=== PATIENT | female | born 1990 | race African-American/Black ===

== ENCOUNTER 2018-02-09 08:22 | Emergency (ER) | payer OTHER ==
[2018-02-09] MEDS ORDERED: METOCLOPRAMIDE 10 MG/2mL INJ ONE (09:24)
[2018-02-09] MEDS ORDERED: KETOROLAC 30 MG/ML INJ ONE (09:25)
[2018-02-09] MEDS ORDERED: DIPHENHYDRAMINE 50 MG/ML VIAL ONE (09:25)
[2018-02-09] MEDS ORDERED: NA CHLORIDE 0.9% 500 ML ONE (09:25)
[2018-02-09 09:36] LABS: Absolute Lymphocytes (CBC) 2.2 K/uL (0.7-4.9); Absolute Monocytes 1.1 K/uL (0.1-1.3); Absolute Neutrophil 6.2 K/uL (1.8-8.0); Basophils % 0.5 % (0-1.3); Eosinophils % 2.3 % (0-4.4); Hematocrit 40.7 % (36.0-45.0); Lymphocytes % 22.7 % (15.3-44.8); MCH 27.2 pg (27.0-35.0); MCV 81.6 fL (80-100); MPV 7.7 fL (7.6-11.3); Monocytes % 11.2 % (3.3-12.3); RBC Red Blood Cell Count 4.99 M/uL (3.86-4.86)
--- NOTE | 2018-02-09 09:43 | ER ---
Nurse's Notes [facility] Name: Sarai Medina Age: 27 yrs Sex: Female : 1990 Arrival Date: 02/09/2018 Time: 08:26 Bed 16 Private MD: Diagnosis: Presentation: 02/09 08:35 Presenting complaint: Patient states: pt c/o vomiting/diarrhea since eating [employer] iw yesterday. Transition of care: patient was not received from another setting of care. Onset of symptoms was February 09, 2018. Care prior to arrival: None. 08:35 Method Of Arrival: Ambulatory iw 08:35 Acuity: LAURA 3 iw Historical: - Allergies: 08:45 Phenergan; tw2 - Home Meds: 08:45 None [Active]; tw2 - PSHx: 08:45 left hand sx; Knee surgery; tw2 - Immunization history:: Adult Immunizations up to date. - Social history:: Smoking status: Patient uses tobacco products, smokes one-half pack cigarettes per day. Screenin:39 Abuse screen: Denies threats or abuse. Nutritional screening: On. Tuberculosis tw2 screening: No symptoms or risk factors identified. Fall Risk None identified. Assessment: 08:42 General: Appears in no apparent distress. obese, Behavior is calm, cooperative, tw2 appropriate for age. Pain: Complains of pain in "headache". Neuro: Level of Consciousness is awake, alert, obeys commands, Oriented to person, place, time, situation. Cardiovascular: Denies chest pain, shortness of breath, Heart tones S1 S2 Capillary refill < 3 seconds Patient's skin is warm and dry. Respiratory: Airway is patent Respiratory effort is even, unlabored, Respiratory pattern is regular, symmetrical. GI: Abdomen is round non-distended, obese, Bowel sounds present X 4 quads. Reports vomiting, 7 x's vomiting since 11 am yesterday. : No signs and/or symptoms were reported regarding the genitourinary system. EENT: No signs and/or symptoms were reported regarding the EENT system. Derm: Skin is intact, is healthy with good turgor, Skin temperature is warm. Musculoskeletal: Range of motion: intact in all extremities. 09:31 Reassessment: pt pulled iv out, stated "i am tired and im ready to go", pts at tw2 bedside. Vital Signs: 08:41 BP 103 / 86; Pulse 86; Resp 17; Temp 98.9(O); Pulse Ox 99% on R/A; tw2 ED Course: 08:26 Patient arrived in ED. mr 08:38 Jean Claude Zheng PA is PHCP. jr8 08:38 Gerardo Morel MD is Attending Physician. jr8 08:38 Carmen Sheth, ENMANUEL is Primary Nurse. tw2 08:45 Arm band placed on. tw2 08:46 Triage completed. iw 08:46 Bed in low position. Call light in reach. Pulse ox on. NIBP on. tw2 Administered Medications: 09:20 Drug: Reglan 10 mg Route: IVP; Site: right antecubital; tw2 09:22 Drug: TORadol 30 mg Route: IVP; Site: right antecubital; tw2 09:24 Drug: Benadryl 25 mg Route: IVP; Site: right antecubital; tw2 09:24 Drug: NS 0.9% 500 ml Route: IV; Rate: bolus; Site: right antecubital; tw2 Outcome: 09:42 Patient left the ED. tw2 09:44 Patient left the ED. tw2 09:49 Patient left the ED. 8 Signatures: Shannon Barber Caridad Frias, RN RN Jean Claude Zheng PA PA jr8 Carmen Sheth RN RN tw2 Corrections: (The following items were deleted from the chart) 08:46 08:35 Acuity: LAURA 4 iw iw
--- NOTE | 2018-02-09 09:43 | EDPHYS ---
Physician Documentation [facility] Name: Sarai Medina Age: 27 yrs Sex: Female : 1990 Arrival Date: 02/09/2018 Time: 08:26 Bed 16 Private MD: ED Physician Gerardo Morel HPI: 02/09 08:54 This 27 yrs old Black Female presents to ER via Ambulatory with complaints of Vomiting, jr8 Headache. 08:54 The patient presents to the emergency department with nausea, vomiting, diarrhea. jr8 Onset: The symptoms/episode began/occurred acutely, yesterday. Possible causes: bad food exposure, hamburger. The symptoms are aggravated by nothing. The symptoms are alleviated by nothing. Associated signs and symptoms: Pertinent positives: headache. Severity of symptoms: At their worst the symptoms were mild in the emergency department the symptoms are unchanged. The patient has not experienced similar symptoms in the past. The patient has not recently seen a physician. Patient stated that she had a hamburger at 10 AM yesterday. At 11 AM started to vomit. Has continued to vomit this morning and now has headache from vomiting that she cannot get rid of . Historical: - Allergies: 08:45 Phenergan; tw2 - Home Meds: 08:45 None [Active]; tw2 - PSHx: 08:45 left hand sx; Knee surgery; tw2 - Immunization history:: Adult Immunizations up to date. - Social history:: Smoking status: Patient uses tobacco products, smokes one-half pack cigarettes per day. ROS: 08:54 Eyes: Negative for injury, pain, redness, and discharge, ENT: Negative for injury, jr8 pain, and discharge, Neck: Negative for injury, pain, and swelling, Cardiovascular: Negative for chest pain, palpitations, and edema, Respiratory: Negative for shortness of breath, cough, wheezing, and pleuritic chest pain, Back: Negative for injury and pain, MS/Extremity: Negative for injury and deformity, Skin: Negative for injury, rash, and discoloration. 08:54 Abdomen/GI: Positive for nausea, vomiting, and diarrhea, Negative for abdominal pain, abdominal distension, anorexia, dysphagia, hematemesis, black/tarry stool, rectal pain, rectal bleeding, bowel incontinence, flatulence. 08:54 Neuro: Positive for headache, Negative for altered mental status, dizziness, gait disturbance, hearing loss, loss of consciousness, numbness, seizure activity, speech changes, syncope, near syncope, tingling, tinnitus, tremor, visual changes, weakness. Exam: 08:54 Eyes: Pupils equal round and reactive to light, extra-ocular motions intact. Lids and jr8 lashes normal. Conjunctiva and sclera are non-icteric and not injected. Cornea within normal limits. Periorbital areas with no swelling, redness, or edema. ENT: Nares patent. No nasal discharge, no septal abnormalities noted. Tympanic membranes are normal and external auditory canals are clear. Oropharynx with no redness, swelling, or masses, exudates, or evidence of obstruction, uvula midline. Mucous membranes moist. Neck: Trachea midline, no thyromegaly or masses palpated, and no cervical lymphadenopathy. Supple, full range of motion without nuchal rigidity, or vertebral point tenderness. No Meningismus. Cardiovascular: Regular rate and rhythm with a normal S1 and S2. No gallops, murmurs, or rubs. Normal PMI, no JVD. No pulse deficits. Respiratory: Lungs have equal breath sounds bilaterally, clear to auscultation and percussion. No rales, rhonchi or wheezes noted. No increased work of breathing, no retractions or nasal flaring. Abdomen/GI: Soft, non-tender, with normal bowel sounds. No distension or tympany. No guarding or rebound. No evidence of tenderness throughout. Back: No spinal tenderness. No costovertebral tenderness. Full range of motion. Skin: Warm, dry with normal turgor. Normal color with no rashes, no lesions, and no evidence of cellulitis. MS/ Extremity: Pulses equal, no cyanosis. Neurovascular intact. Full, normal range of motion. Neuro: Awake and alert, GCS 15, oriented to person, place, time, and situation. Cranial nerves II-XII grossly intact. Motor strength 5/5 in all extremities. Sensory grossly intact. Cerebellar exam normal. Normal gait. Vital Signs: 08:41 BP 103 / 86; Pulse 86; Resp 17; Temp 98.9(O); Pulse Ox 99% on R/A; tw2 MDM: 08:38 Patient medically screened. jr8 09:46 Data reviewed: vital signs, nurses notes, lab test result(s). ED course: Patient was jr8 yelling at significant other while in Exam room. Had told the nurse that she was getting hot and ripped her IV out and left the ED. Could not get to her before she left . 02/09 08:54 Order name: CBC with Diff jr 02/09 08:54 Order name: Basic Metabolic Panel [facility] 02/09 09:41 Order name: CBC with Automated Diff; Complete Time: 09:42 [facility] 02/09 08:54 Order name: Urine Test (obtain specimen) [facility] 02/09 08:54 Order name: Urine Dipstick-Ancillary (obtain specimen) [facility] 02/09 08:54 Order name: IV jr Administered Medications: 09:20 Drug: Reglan 10 mg Route: IVP; Site: right antecubital; tw2 09:22 Drug: TORadol 30 mg Route: IVP; Site: right antecubital; tw2 09:24 Drug: Benadryl 25 mg Route: IVP; Site: right antecubital; tw2 09:24 Drug: NS 0.9% 500 ml Route: IV; Rate: bolus; Site: right antecubital; tw2 Disposition: 11:00 Co-signature as Attending Physician, Gerardo Morel MD I agree with the assessment and erica plan of care. Disposition: 02/09/18 09:42 Patient left the facility after being seen by provider. - Patient left due to (see nurse's notes). Signatures: Dispatcher [employer] [facility] Gerardo Morel MD MD cha Roszak, Josh, PA PA 8 Carmen Sheth RN RN tw2
[2018-02-09 09:45] LABS: BUN Blood Urea Nitrogen 10 mg/dL (6-20); Bicarbonate 28 mEq/L (21-31); Glomerular Filtration Rate > 90 mL/min (=/>90); Glucose Level 102 mg/dL (65-120); Potassium 3.8 mEq/L (3.6-5.0); Sodium Level 138 mEq/L (135-145)
== END 2018-02-09 09:49 | disposition left against medical advice (07) ==
LOC: ER 08:22
DX: R11.2 Nausea with vomiting, unspecified (principal); R51 Headache; F17.210 Nicotine dependence, cigarettes, uncomplicated; Z88.8 Allergy status to other drugs, medicaments and biological substances
CPT/HCPCS: 36415; 80048; 85025; 96374; 96375; 99283; J2765

== ENCOUNTER 2018-07-31 16:45 | Emergency (ER) | payer OTHER ==
[2018-07-31] MEDS ORDERED: CLINDAMYCIN 900MG/D5W 900 MG/50 ML BAG IV ONE (17:30)
[2018-07-31] MEDS ORDERED: KETOROLAC 30 MG/ML INJ ONE (17:35)
[2018-07-31 18:17] LABS: Absolute Lymphocytes (CBC) 2.3 K/uL (0.7-4.9); Absolute Monocytes 1.5 K/uL (0.1-1.3); BUN Blood Urea Nitrogen 7 mg/dL (7-18); Basophils % 0.3 % (0-1.3); Bicarbonate 27 mmol/L (21-32); Eosinophils % 1.4 % (0-4.4); Glucose Level 91 mg/dL (74-106); Hematocrit 38.2 % (36.0-45.0); Lymphocytes % 17.6 % (15.3-44.8); MCH 27.2 pg (27.0-35.0); MCV 82.2 fL (80-100); MPV 8.3 fL (7.6-11.3); Monocytes % 11.5 % (3.3-12.3); Potassium 3.7 mmol/L (3.5-5.1); RBC Red Blood Cell Count 4.65 M/uL (3.86-4.86); Sodium Level 140 mmol/L (136-145)
[2018-07-31 18:20] LABS: Urine Blood 2+ (NEG); Urine Glucose NEGATIVE (NEG); Urine Protein NEGATIVE (NEG); Urine Specific Gravity 1.015 (1.005-1.030)
--- NOTE | 2018-07-31 19:36 | RAD REPORT ---
EXAM DESCRIPTION: CT - Facial Bones W Con Mpr - 07/31/2018 6:45 pm CLINICAL HISTORY: Right-sided maxilla region facial swelling COMPARISON: None. TECHNIQUE: Axial 2 millimeter thick images of the facial soft tissues obtained following nonionic co ntrast administration. FINDINGS: Frontal, ethmoid, sphenoid and left maxillary sinuses are fully aerated. Prominent circumf erential mucosal thickening fills the majority of the right maxillary sinus. No air-fluid level. Wall s are slightly sclerotic indicating chronic sinusitis. No globe or orbital content abnormality. No fracture changes. Condyles of the mandible are normally positioned. Dental decay is seen in the po sterior right maxilla molar. There is edema and stranding in the adjacent fatty tissues. No abscess o r drainable fluid collections seen. IMPRESSION: Edematous/inflammatory stranding in the soft tissues along the right side maxilla. No ab scess or drainable fluid collection. Posterior right maxilla dental decay is present. No bone erosion or destruction. Chronic right maxillary sinusitis.
[2018-07-31] MEDS ORDERED: DEXAMETHASONE 4 MG/ML VIAL ONE (20:29)
--- NOTE | 2018-07-31 20:44 | EDPHYS ---
Physician Documentation [facility] Name: Sarai Medina Age: 28 yrs Sex: Female : 1990 Arrival Date: 07/31/2018 Time: 16:47 Bed 25 Private MD: None, None ED Physician Gregory Hickman HPI: 07/31 20:45 This 28 yrs old Black Female presents to ER via Ambulatory with complaints of Headache, wa Ear Pain, Jaw Pain. 20:45 The patient presents with pain, swelling. The problem is located in the right zygomatic wa area and upper jaw area. Onset: The symptoms/episode began/occurred 2 day(s) ago. Duration: The symptoms are continuous, and are steadily getting worse. Modifying factors: The symptoms are alleviated by nothing, the symptoms are aggravated by chewing, talking. Associated signs and symptoms: The patient has no apparent associated signs or symptoms. Severity of symptoms: At their worst the symptoms were moderate, in the emergency department the symptoms are actually worse, moderately. The patient has not experienced similar symptoms in the past. The patient has not recently seen a physician. 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 - Social history:: Smoking status: Patient uses tobacco products, smokes one-half pack cigarettes per day. - Ebola Screening: : Patient negative for fever greater than or equal to 101.5 degrees Fahrenheit, and additional compatible Ebola Virus Disease symptoms Patient denies exposure to infectious person Patient denies travel to an Ebola-affected area in the 21 days before illness onset No symptoms or risks identified at this time. - Family history:: not pertinent. - Hospitalizations: : No recent hospitalization is reported. ROS: 20:46 Constitutional: Negative for fever, chills, and weight loss, Eyes: Negative for injury, wa pain, redness, and discharge, Neck: Negative for injury, pain, and swelling, Cardiovascular: Negative for chest pain, palpitations, and edema, Respiratory: Negative for shortness of breath, cough, wheezing, and pleuritic chest pain, Abdomen/GI: Negative for abdominal pain, nausea, vomiting, diarrhea, and constipation, Back: Negative for injury and pain, : Negative for injury, bleeding, discharge, and swelling, MS/Extremity: Negative for injury and deformity, Skin: Negative for injury, rash, and discoloration, Psych: Negative for depression, anxiety, suicide ideation, homicidal ideation, and hallucinations. 20:46 ENT: Positive for dental pain, ear pain, of the R upper jaw, sinus pain, Negative for drainage from ear(s). 20:46 Neuro: Positive for headache. 20:46 All other systems are negative. Exam: 20:49 Constitutional: This is a well developed, well nourished patient who is awake, alert, wa and in no acute distress. Eyes: Pupils equal round and reactive to light, extra-ocular motions intact. Lids and lashes normal. Conjunctiva and sclera are non-icteric and not injected. Cornea within normal limits. Periorbital areas with no swelling, redness, or edema. Neck: Trachea midline, no thyromegaly or masses palpated, and no cervical lymphadenopathy. Supple, full range of motion without nuchal rigidity, or vertebral point tenderness. No Meningismus. Chest/axilla: Normal chest wall appearance and motion. Nontender with no deformity. No lesions are appreciated. Cardiovascular: Regular rate and rhythm with a normal S1 and S2. No gallops, murmurs, or rubs. Normal PMI, no JVD. No pulse deficits. Respiratory: Lungs have equal breath sounds bilaterally, clear to auscultation and percussion. No rales, rhonchi or wheezes noted. No increased work of breathing, no retractions or nasal flaring. Abdomen/GI: Soft, non-tender, with normal bowel sounds. No distension or tympany. No guarding or rebound. No evidence of tenderness throughout. Back: No spinal tenderness. No costovertebral tenderness. Full range of motion. Skin: Warm, dry with normal turgor. Normal color with no rashes, no lesions, and no evidence of cellulitis. MS/ Extremity: Pulses equal, no cyanosis. Neurovascular intact. Full, normal range of motion. Neuro: Awake and alert, GCS 15, oriented to person, place, time, and situation. Cranial nerves II-XII grossly intact. Motor strength 5/5 in all extremities. Sensory grossly intact. Cerebellar exam normal. Normal gait. Psych: Awake, alert, with orientation to person, place and time. Behavior, mood, and affect are within normal limits. 20:49 Head/face: Sinus tenderness, that is moderate, is located over the right maxillary sinus. 20:49 ENT: External ear(s): are unremarkable, Dental exam: dental caries, diffusely, multiple dental decay. no specific area of abscess. Vital Signs: 17:03 BP 143 / 79; Pulse 97; Resp 18; Temp 98.7; Pulse Ox 98% on R/A; Weight 136.08 kg; aj Height 5 ft. 6 in. (167.64 cm); 18:38 BP 110 / 71 RA Supine (auto/lg); Pulse 68; Resp 20; Pulse Ox 98% on R/A; Pain 7/10; jp3 20:53 BP 134 / 74; Pulse 76; Resp 16; Temp 98.5(TE); Pulse Ox 100% on R/A; la1 17:03 Body Mass Index 48.42 (136.08 kg, 167.64 cm) aj MDM: 20:43 Patient medically screened. wa 20:50 Differential diagnosis: dental caries, gingivitis, dental abscess. Data reviewed: vital wa signs, nurses notes. Test interpretation: by ED physician or midlevel provider: leukocytosis. CT noted for edema/inflammatory stranding in soft tissue of R side maxilla. no obvious abscess. Response to treatment: the patient's symptoms have markedly improved after treatment. ED course: d/c with abx and close f/u. advised immediate return for acute worsening. 07/31 17:15 Order name: CBC with Diff; Complete Time: 18:30 kdr 07/31 17:15 Order name: Chem 7; Complete Time: 18:30 kdr 07/31 17:15 Order name: CT Facial Bones W/ Con \T\ Mpr; Complete Time: 20:21 kdr 07/31 17:38 Order name: Urine Dipstick--Ancillary (enter results); Complete Time: 18:30 eb 07/31 17:38 Order name: Urine --Ancillary (enter results); Complete Time: 18:30 eb Administered Medications: 17:27 Drug: Clindamycin 900 mg Route: IVPB; Infused Over: 30 mins; Site: left wrist; mg2 20:52 Follow up: IV Status: Completed infusion la1 17:33 Drug: TORadol 30 mg Route: IVP; Site: left forearm; la1 20:36 Follow up: Response: No adverse reaction; Pain is decreased la1 20:35 Drug: Decadron - Dexamethasone 10 mg Route: IVP; Site: left forearm; la1 20:36 Follow up: Response: No adverse reaction la1 Disposition: 07/31/18 20:43 Discharged to Home. Impression: Maxillary Sinusitis, Dental Caries. - Condition is Stable. - Discharge Instructions: Dental Caries, Adult, Sinusitis, Adult. - Prescriptions for Augmentin 875- 125 mg Oral Tablet - take 1 tablet by ORAL route every 12 hours for 10 days; 20 tablet. Ibuprofen 600 mg Oral Tablet - take 1 tablet by ORAL route every 6 hours As needed take with food; 30 tablet. - Medication Reconciliation Form, Thank You Letter, Antibiotic Education, Prescription Opioid Use form. - Follow up: Tiki Coley MD; When: 2 - 3 days; Reason: follow up wih the ENT doctor if worsening. you have sinus inflammation. Follow up: Aramis Julien DDS; When: 1 - 2 days; Reason: Recheck today's complaints. - Problem is new. - Symptoms have improved. - Notes: follow up with the dentist as discussed. return here immediately if your symptoms are worsening Signatures: Dispatcher [employer] [facility] Pam Abebe RN RN aj Rittger, Kevin, MD MD kdr Attema, Lee, RN RN la1 Gregory Hickman MD MD wa Gardose, Michele, RN RN mg2 Corrections: (The following items were deleted from the chart) 18:19 17:16 TEST, SERUM+[id number].LAB.BRZ ordered. [facility] 20:54 20:43 07/31/2018 20:43 Discharged to Home. Impression: Maxillary Sinusitis; Dental la1 Caries. Condition is Stable. Forms are Medication Reconciliation Form, Thank You Letter, Antibiotic Education, Prescription Opioid Use. Follow up: Tiki Coley; When: 2 - 3 days; Reason: follow up wih the ENT doctor if worsening. you have sinus inflammation. Follow up: Aramis Julien; When: 1 - 2 days; Reason: Recheck today's complaints. Problem is new. Symptoms have improved. kim
--- NOTE | 2018-07-31 20:44 | ER ---
Nurse's Notes [facility] Name: Sarai Medina Age: 28 yrs Sex: Female : 1990 Arrival Date: 07/31/2018 Time: 16:47 Bed 25 Private MD: None, None Diagnosis: Maxillary Sinusitis;Dental Caries Presentation: 07/31 17:02 Presenting complaint: Patient states: Swelling to right upper jaw/cheek for 2 days. aj Pain at 10/10. Transition of care: patient was not received from another setting of care. Onset of symptoms was July 31, 2018. Risk Assessment: Do you want to hurt yourself or someone else? Patient reports no desire to harm self or others. Initial Sepsis Screen: Does the patient meet any 2 criteria? No. Patient's initial sepsis screen is negative. Does the patient have a suspected source of infection? No. Patient's initial sepsis screen is negative. Care prior to arrival: None. 17:02 Method Of Arrival: Ambulatory aj 17:02 Acuity: LAURA 3 aj Triage Assessment: 17:03 Headache History: The patient has had previous headaches. General: Appears in no aj apparent distress. comfortable, Behavior is calm, cooperative, appropriate for age. Pain: Complains of pain in right zygomatic area. EENT: Reports pain in right zygomatic area. Neuro: Level of Consciousness is awake, alert, obeys commands, Oriented to person, place, time, situation, Appropriate for age. Respiratory: Airway is patent Respiratory effort is even, unlabored, Respiratory pattern is regular, symmetrical. Derm: Skin is intact, is healthy with good turgor, Skin is pink, warm \T\ dry. normal. 20:53 Pain: Pain currently is 5 out of 10 on a pain scale. Pain began 2-3 days ago. Also la1 complains of no other associated symptoms. 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 - Social history:: Smoking status: Patient uses tobacco products, smokes one-half pack cigarettes per day. - Ebola Screening: : Patient negative for fever greater than or equal to 101.5 degrees Fahrenheit, and additional compatible Ebola Virus Disease symptoms Patient denies exposure to infectious person Patient denies travel to an Ebola-affected area in the 21 days before illness onset No symptoms or risks identified at this time. - Family history:: not pertinent. - Hospitalizations: : No recent hospitalization is reported. Screenin:00 Abuse screen: Denies threats or abuse. Nutritional screening: No deficits noted. la1 Tuberculosis screening: No symptoms or risk factors identified. Fall Risk None identified. Assessment: 19:59 General: Appears in no apparent distress. Behavior is calm, cooperative. Pain: la1 Complains of pain in right zygomatic area. Neuro: Level of Consciousness is awake, alert, obeys commands, Oriented to person, place, time, situation. Cardiovascular: Capillary refill < 3 seconds Patient's skin is warm and dry. Respiratory: Airway is patent Respiratory effort is even, unlabored, Respiratory pattern is regular, symmetrical, Breath sounds are clear bilaterally. GI: No deficits noted. No signs and/or symptoms were reported involving the gastrointestinal system. : No deficits noted. No signs and/or symptoms were reported regarding the genitourinary system. EENT: Denies blurred vision photophobia difficulty swallowing. 20:53 Reassessment: Patient appears in no apparent distress at this time. No changes from la1 previously documented assessment. Patient and/or family updated on plan of care and expected duration. Pain level reassessed. Vital Signs: 17:03 BP 143 / 79; Pulse 97; Resp 18; Temp 98.7; Pulse Ox 98% on R/A; Weight 136.08 kg; aj Height 5 ft. 6 in. (167.64 cm); 18:38 BP 110 / 71 RA Supine (auto/lg); Pulse 68; Resp 20; Pulse Ox 98% on R/A; Pain 7/10; jp3 20:53 BP 134 / 74; Pulse 76; Resp 16; Temp 98.5(TE); Pulse Ox 100% on R/A; la1 17:03 Body Mass Index 48.42 (136.08 kg, 167.64 cm) aj ED Course: 16:47 Patient arrived in ED. sb2 16:47 None, None is Private Physician. sb2 17:03 Triage completed. aj 17:03 Arm band placed on right wrist. Patient placed in waiting room. aj 17:06 Kevin Abrams RN is Primary Nurse. la1 17:07 Vivek Hernandez MD is Attending Physician. [facility] 17:30 Radiology exam delayed due to lab results not completed at this time. (BUN/Creatinine). vr 18:[address] via wheelchair. vr 18:46 CT Facial Bones W/ Con \T\ Mpr In Process Unspecified. EDMS 19:10 Attending Physician role handed off by Vivek Hernandez MD ut 19:10 Gregory Hickman MD is Attending Physician. ut 20:00 Call light in reach. Side rails up X 1. la1 20:00 No provider procedures requiring assistance completed. Inserted saline lock: 22 gauge la1 in left forearm, using aseptic technique. Blood collected. 20:41 Tiki Coley MD is Referral Physician. ut 20:42 Aramis Julien DDS is Referral Physician. wa 20:53 IV discontinued, intact, bleeding controlled, No redness/swelling at site. Pressure la1 dressing applied. Administered Medications: 17:27 Drug: Clindamycin 900 mg Route: IVPB; Infused Over: 30 mins; Site: left wrist; mg2 20:52 Follow up: IV Status: Completed infusion la1 17:33 Drug: TORadol 30 mg Route: IVP; Site: left forearm; la1 20:36 Follow up: Response: No adverse reaction; Pain is decreased la1 20:35 Drug: Decadron - Dexamethasone 10 mg Route: IVP; Site: left forearm; la1 20:36 Follow up: Response: No adverse reaction la1 Outcome: 20:43 Discharge ordered by . ut 20:53 Discharged to home ambulatory. la1 20:53 Condition: stable 20:53 Discharge instructions given to patient, Instructed on discharge instructions, follow up and referral plans. medication usage, Demonstrated understanding of instructions, follow-up care, medications. 20:54 Patient left the ED. la1 Signatures: Dispatcher [employer] Pam Somers RN RN aj Rittger, Kevin, MD MD kdr Davis, Victoria vr Kevin Abrams RN RN la1 Gregory Hickman MD MD ut Luiza Lam Michele, RN RN [facility] Lamont Engle jp3
== END 2018-07-31 20:54 | disposition home or self-care (01) ==
LOC: ER 16:45
DX: K02.9 Dental caries, unspecified (principal); J32.0 Chronic maxillary sinusitis; F17.210 Nicotine dependence, cigarettes, uncomplicated
CPT/HCPCS: 36415; 70487; 76377; 80048; 81003; 81025; 85025; 96365; 96366; 96375; 99284; Q9967

== ENCOUNTER 2021-02-19 23:55 | Emergency (ER) | payer OTHER, SELFPAY ==
--- NOTE | 2021-02-20 01:12 | ER ---
Nurse's Notes [facility] Name: Sarai Medina Age: 30 yrs Sex: Female : 1990 Arrival Date: 02/19/2021 Time: 23:58 Bed External Waiting Private MD: Diagnosis: ED Course: 02/19 23:58 Patient arrived in ED. ag3 Administered Medications: No medications were administered Outcome: 02/20 01:11 Patient left the ED. sg Signatures: Luke Majano RN RN Diane Joaquin ag3
== END 2021-02-20 01:11 | disposition left against medical advice (07) ==
LOC: ER 23:55
DX: Z02.9 Encounter for administrative examinations, unspecified (principal)

== ENCOUNTER 2021-02-22 01:59 | Emergency (ER) | payer SELFPAY ==
[2021-02-22] MEDS ORDERED: MEPERIDINE HCL 25 MG/ML SYR ONE (02:33)
[2021-02-22] MEDS ORDERED: dexAMETHasone 10 MG/ML VIAL ONE (02:33)
[2021-02-22] MEDS ORDERED: NA CHLORIDE 0.9% 500 ML ONE (02:33)
--- NOTE | 2021-02-22 03:02 | ER ---
Nurse's Notes [facility] Name: Sarai Medina Age: 30 yrs Sex: Female : 1990 Arrival Date: 02/22/2021 Time: 02:02 Bed 15 Private MD: Diagnosis: Migraine Presentation: 02/22 02:08 Chief complaint: Patient states: i have migraine since last and i am on mg2 penicillin for tooth infection. Coronavirus screen: Client denies travel out of the [place] in the last 14 days. Ebola Screen: No symptoms or risks identified at this time. Initial Sepsis Screen: Does the patient meet any 2 criteria? No. Patient's initial sepsis screen is negative. Does the patient have a suspected source of infection? No. Patient's initial sepsis screen is negative. Risk Assessment: Do you want to hurt yourself or someone else? Patient reports no desire to harm self or others. Onset of symptoms was January 2021. 02:08 Method Of Arrival: Ambulatory mg2 02:08 Acuity: LAURA 4 mg2 Triage Assessment: 02:10 Headache History: The patient has had previous headaches. General: Appears in no mg2 apparent distress. comfortable, Behavior is calm, cooperative. Pain:. Historical: - Allergies: 02:09 Phenergan; mg2 - Home Meds: 02:09 None [Active]; mg2 - PMHx: 02:09 None; mg2 - PSHx: 02:09 None; mg2 - Immunization history:: Flu vaccine status is unknown. - Social history:: Smoking status: unknown. - Family history:: not pertinent. - Hospitalizations: : No recent hospitalization is reported. Screenin:38 Abuse screen: Denies threats or abuse. Nutritional screening: No deficits noted. fu Tuberculosis screening: No symptoms or risk factors identified. Fall Risk None identified. Assessment: 02:33 General: Appears uncomfortable, Behavior is calm, cooperative, appropriate for age. fu Pain: Complains of pain in left side of the face, headache Pain currently is 10 out of 10 on a pain scale. Quality of pain is described as aching. Neuro: Level of Consciousness is awake, alert, obeys commands, Oriented to person, place, time, situation, Concrete Layer are equal bilaterally Moves all extremities. Gait is steady, Speech is normal, Facial symmetry appears normal. Cardiovascular: Denies chest pain, nausea, vomiting. Respiratory: Respiratory effort is even, unlabored, Respiratory pattern is regular. GI: No signs and/or symptoms were reported involving the gastrointestinal system. : No signs and/or symptoms were reported regarding the genitourinary system. Derm: No signs and/or symptoms reported regarding the dermatologic system. Musculoskeletal: No signs and/or symptoms reported regarding the musculoskeletal system. 03:31 Reassessment: patient asleep in bed, not in respiratory distress. fu Vital Signs: 02:08 BP 142 / 100; Pulse 89; Resp 18; Pulse Ox 100% on R/A; mg2 02:19 Temp 97.4(TE); mg2 03:33 BP 127 / 41; Pulse 78; Resp 16; Pulse Ox 100% on R/A; Pain 0/10; fu [place] Coma Score: 02:59 Eye Response: spontaneous(4). Verbal Response: oriented(5). Motor Response: obeys rn commands(6). Total: 15. ED Course: 02:02 Patient arrived in ED. cl3 02:04 Too Dubon, ENMANUEL is Primary Nurse. fu 02:05 Kavon Payton MD is Attending Physician. rn 02:09 Triage completed. mg2 02:10 Arm band placed on. mg2 02:44 CT Head Brain wo Cont In Process Unspecified. EDMS 02:50 Inserted saline lock: 22 gauge in right hand, using aseptic technique. fu 03:39 Bed in low position. Call light in reach. Pulse ox on. NIBP on. fu 03:39 No provider procedures requiring assistance completed. fu 03:51 IV discontinued, bleeding controlled, Pressure dressing applied. fu Administered Medications: 02:31 Drug: Demerol 25 mg Route: IVP; Site: right hand; fu 03:29 Follow up: Response: Pain is decreased fu 02:31 Drug: NS 0.9% 500 ml Route: IV; Rate: bolus; Site: right hand; fu 03:30 Follow up: Response: No adverse reaction; IV Intake: 500ml fu 03:30 Follow up: IV Status: Completed infusion fu 02:32 Drug: Decadron - Dexamethasone 10 mg Route: IVP; Site: right hand; fu 03:31 Follow up: Response: No adverse reaction fu Intake: 03:30 IV: 500ml; Total: 500ml. fu Outcome: 03:01 Discharge ordered by . rn 03:52 Discharged to home ambulatory. fu 03:52 Condition: stable 03:52 Discharge instructions given to patient, Instructed on discharge instructions, follow up and referral plans. Demonstrated understanding of instructions, follow-up care. 03:52 Patient left the ED. fu Signatures: Dispatcher [employer] EDKavon Hutton MD MD rn Umadhay, Felix, Mikey Guy RN, RN RN mg2 Lewis, Charde 3
--- NOTE | 2021-02-22 03:02 | EDPHYS ---
Physician Documentation [facility] Name: Sarai Medina Age: 30 yrs Sex: Female : 1990 Arrival Date: 02/22/2021 Time: 02:02 Bed 15 Private MD: ED Physician Kavon Payton HPI: 02/22 02:12 This 30 yrs old Black Female presents to ER via Ambulatory with complaints of Jaw Pain, rn Headache. 02:12 The patient complains of pain to the back of head, left side of head. The patient rn describes the headache as aching. 02:12 Onset: The symptoms/episode began/occurred 5 day(s) ago. Associated signs and symptoms: rn Pertinent negatives: fever, neck stiffness, rash, vision changes, vision loss. Severity of symptoms: At its worst the pain was moderate, in the emergency department the pain is unchanged. The symptoms are alleviated by nothing. the symptoms are aggravated by nothing. The patient has experienced similar episodes in the past. The patient has not recently seen a physician. Reports headache, migraine, began 5 days ago, no fever, + hx of migraines but worse than usual. No trauma. Reports dental problems but on abx currently and denies focal dental pain.. Historical: - Allergies: 02:09 Phenergan; mg2 - Home Meds: 02:09 None [Active]; mg2 - PMHx: 02:09 None; mg2 - PSHx: 02:09 None; mg2 - Immunization history:: Flu vaccine status is unknown. - Social history:: Smoking status: unknown. - Family history:: not pertinent. - Hospitalizations: : No recent hospitalization is reported. ROS: 02:12 Constitutional: Negative for fever, chills, and weight loss, Eyes: Negative for injury, rn pain, redness, and discharge, Neck: Negative for injury, pain, and swelling, Cardiovascular: Negative for chest pain, palpitations, and edema, Respiratory: Negative for shortness of breath, cough, wheezing, and pleuritic chest pain, Abdomen/GI: Negative for abdominal pain, nausea, vomiting, diarrhea, and constipation, Back: Negative for injury and pain, MS/Extremity: Negative for injury and deformity, Skin: Negative for injury, rash, and discoloration, Neuro: Negative for weakness, numbness, tingling, and seizure. Exam: 02:12 Constitutional: This is a well developed, well nourished patient who is awake, alert rn Head/Face: Normocephalic, atraumatic. Eyes: Pupils equal round and reactive to light, extra-ocular motions intact. ENT: Poor dentition, no swelling, no erythema Neck: Trachea midline, no thyromegaly or masses palpated, and no cervical lymphadenopathy. Supple, full range of motion without nuchal rigidity, or vertebral point tenderness. No Meningismus. Skin: Warm, dry with normal turgor. Normal color with no rashes, no lesions, and no evidence of cellulitis. MS/ Extremity: Pulses equal, no cyanosis. Neurovascular intact. Full, normal range of motion. Equal circumference. Neuro: Awake and alert, GCS 15, oriented to person, place, time, and situation. Cranial nerves II-XII grossly intact. Motor strength 5/5 in all extremities. Sensory grossly intact. Cerebellar exam normal. Normal gait. Vital Signs: 02:08 BP 142 / 100; Pulse 89; Resp 18; Pulse Ox 100% on R/A; mg2 02:19 Temp 97.4(TE); mg2 03:33 BP 127 / 41; Pulse 78; Resp 16; Pulse Ox 100% on R/A; Pain 0/10; fu [place] Coma Score: 02:59 Eye Response: spontaneous(4). Verbal Response: oriented(5). Motor Response: obeys rn commands(6). Total: 15. MDM: 02:06 Patient medically screened. rn 02:59 Differential diagnosis: hypertensive headache, migraine, tension headache, vasomotor rn headache. Data reviewed: vital signs, nurses notes, radiologic studies, CT scan, and as a result, I will discharge patient. Counseling: I had a detailed discussion with the patient and/or guardian regarding: the historical points, exam findings, and any diagnostic results supporting the discharge/admit diagnosis, radiology results, the need for outpatient follow up, to return to the emergency department if symptoms worsen or persist or if there are any questions or concerns that arise at home. Response to treatment: the patient's symptoms have mildly improved after treatment, and as a result, I will discharge patient. Special discussion: I discussed with the patient/guardian in detail that at this point there is no indication for admission to the hospital. It is understood, however, that if the symptoms persist or worsen the patient needs to return immediately for re-evaluation. ED course: Neg ct head, already on abx for teeth, recommend neuro f/u if migraines continue.. 02/22 02:12 Order name: CT Head Brain wo Cont rn 02/22 02:12 Order name: IV Start; Complete Time: : rn Administered Medications: 02: Drug: Demerol 25 mg Route: IVP; Site: right hand; fu 03:29 Follow up: Response: Pain is decreased fu : Drug: NS 0.9% 500 ml Route: IV; Rate: bolus; Site: right hand; fu 03:30 Follow up: Response: No adverse reaction; IV Intake: 500ml fu 03:30 Follow up: IV Status: Completed infusion fu :32 Drug: Decadron - Dexamethasone 10 mg Route: IVP; Site: right hand; fu 03:31 Follow up: Response: No adverse reaction fu Disposition: 02/22/21 03:01 Discharged to Home. Impression: Migraine. - Condition is Stable. - Discharge Instructions: Migraine Headache. - Medication Reconciliation Form, Thank You Letter, Antibiotic Education, Prescription Opioid Use form. - Follow up: Private Physician; When: As needed; Reason: Recheck today's complaints, Re-evaluation by your physician. - Problem is new. - Symptoms have improved. Signatures: Dispatcher [employer] EDMS Kavon Payton MD MD rn Umadhay, Felix, RN RN fu Gardose, Michele, RN RN mg2 Corrections: (The following items were deleted from the chart) 03:52 03:01 02/22/2021 03:01 Discharged to Home. Impression: Migraine. Condition is Stable. fu Forms are Medication Reconciliation Form, Thank You Letter, Antibiotic Education, Prescription Opioid Use. Follow up: Private Physician; When: As needed; Reason: Recheck today's complaints, Re-evaluation by your physician. Problem is new. Symptoms have improved. rn
--- NOTE | 2021-02-22 13:20 | RAD REPORT ---
EXAM DESCRIPTION: CT - Head Brain Wo Cont - 02/22/2021 6:01 am COMPARISON: None. CLINICAL HISTORY: [facility] MAIN HEADACHE TECHNIQUE: Axial images were obtained from skull base to vertex without intravenous contrast. Imag es viewed on bone and brain windows. Multiplanar reformats were performed. Automated exposure contr ol was utilized on this examination as a dose lowering technique. FINDINGS: Brain parenchyma, ventricles, dura, meninges, and extra-axial spaces: Ventricles and sulci are normal. No abnormal attenuation of brain parenchyma is present. No acute intracranial hemor rhage or abnormal extra-axial fluid collections are present. Vascular structures: No hyperdense arteries or veins. Calvarium, mastoid air cells, paranasal sinuses and orbits: The calvarium is normal. The mastoid air cells are clear. Visualized paranasal sinuses are unremarkable. Orbital structures are unremarkable. IMPRESSION: No acute intracranial abnormality. Electronically signed by: Filiberto Jackson MD 02/22/2021 2:51 AM CDT Due to temporary technical issues with the PACS/Fluency reporting system, reports are being signed by the in house radiologists without review as a courtesy to insure prompt reporting. The interpreting radiologist is fully responsible for the content of the report.
[2021-02-22 15:47] VITALS: O2SAT 100
[2021-02-22 15:48] VITALS: TEMP 97.4
[2021-02-22 15:49] VITALS: BP 127/41
== END 2021-02-22 03:52 | disposition home or self-care (01) ==
LOC: ER 01:59
DX: G43.909 Migraine, unspecified, not intractable, without status migrainosus (principal); Z88.8 Allergy status to other drugs, medicaments and biological substances
CPT/HCPCS: 70450; 96361; 96374; 96375; 99284; J1100; J2175; J7040

== ENCOUNTER 2021-10-16 09:16 | Emergency (ER) | payer SELFPAY ==
[2021-10-16 10:07] LABS: Urine Blood Negative (Negative); Urine Glucose Negative (Negative); Urine Protein Negative (Negative); Urine Specific Gravity 1.025 (1.005-1.030)
[2021-10-16] MEDS ORDERED: NA CHLORIDE 0.9% 1,000 ML ONE (10:19)
[2021-10-16] MEDS ORDERED: MORPHINE 4 MG/ML SYR ONE (10:19)
[2021-10-16] MEDS ORDERED: ONDANSETRON 4 MG/2 ML VIAL ONE (10:19)
[2021-10-16 10:27] LABS: Absolute Lymphocytes (CBC) 0.7 K/uL (0.7-4.9); Basophils % 0.3 % (0-1.3); Hematocrit 40.1 % (36.0-45.0); Lymphocytes % 5.5 % (15.3-44.8); RBC Red Blood Cell Count 5.11 M/uL (3.86-4.86)
[2021-10-16 10:34] LABS: Urine Specific Gravity/Preg 1.025 (1.005-1.030)
--- NOTE | 2021-10-16 11:04 | RAD REPORT ---
EXAM DESCRIPTION: CT - Abdomen Pelvis W Contrast - 10/16/2021 10:42 am CLINICAL HISTORY: Abdominal pain COMPARISON: none. TECHNIQUE: Computed axial tomography of the abdomen pelvis was obtained. 100 cc Isovue-300 was admin istered intravenously. Oral contrast was not requested which limits evaluation of bowel. All CT scans are performed using dose optimization technique as appropriate and may include automated exposure control or mA/KV adjustment according to patient size. FINDINGS: Cholecystectomy. Small umbilical hernia. Fluid within small bowel. The liver, spleen, pancreas, adrenal and kidneys appear unremarkable. There is no evidence of diverticulitis. Normal appendix. Trace amount of ascites IMPRESSION: Fluid within nondilated bowel may indicate an enteritis
[2021-10-16 11:19] LABS: SARS-COV-2 RT PCR NEGATIVE (NEGATIVE)
[2021-10-16 11:22] LABS: ALT/SGPT 19 U/L (12-78); AST/SGOT 11 U/L (15-37); Albumin 3.4 g/dL (3.4-5.0); Alkaline Phosphatase 93 U/L (45-117); BUN Blood Urea Nitrogen 9 mg/dL (7-18); Bicarbonate 24 mmol/L (21-32); Bilirubin Direct < 0.1 mg/dL (0-0.2); Bilirubin Total 0.3 mg/dL (0.2-1.0); Glucose Level 108 mg/dL (74-106); Lipase 49 U/L (73-393); Protein, Total 7.7 g/dL (6.4-8.2); Sodium Level 141 mmol/L (136-145)
--- NOTE | 2021-10-16 11:32 | ER ---
Nurse's Notes [facility] Name: Sarai Medina Age: 31 yrs Sex: Female : 1990 Arrival Date: 10/16/2021 Time: 09:18 Bed 9 Private MD: Diagnosis: Vomiting, unspecified;Diarrhea, unspecified Presentation: 10/16 09:42 Chief complaint: Patient states: nausea/vomiting/diarrhea and abd pain that began 2 aa5 days ago. Coronavirus screen: diarrhea, nausea, vomiting. Ebola Screen: No symptoms or risks identified at this time. Initial Sepsis Screen: Does the patient meet any 2 criteria? HR > 90 bpm. Does the patient have a suspected source of infection? No. Patient's initial sepsis screen is negative. Risk Assessment: Do you want to hurt yourself or someone else? Patient reports no desire to harm self or others. Onset of symptoms was September 2021. 09:42 Acuity: LAURA 3 aa5 09:42 Method Of Arrival: Ambulatory aa5 Historical: - Allergies: 09:43 Phenergan; aa5 - Home Meds: 09:43 None [Active]; aa5 - PMHx: 09:43 None; aa5 - PSHx: 09:43 Cholecystectomy; aa5 - Immunization history:: Client reports having NOT received the Covid vaccine. - Social history:: Smoking status: Patient reports the use of cigarette tobacco products. Screenin:17 Abuse screen: Denies threats or abuse. Denies injuries from another. Nutritional ss screening: No deficits noted. Tuberculosis screening: Never had TB. Fall Risk None identified. Assessment: 10:00 General: Appears in no apparent distress. comfortable, Behavior is calm, cooperative, ss laughing and joking with ED staff. Reports feeling ill for 1-2 days, Denies fever. Pain: Complains of pain in epigastric area and left lower quadrant Pain currently is 7 out of 10 on a pain scale. Quality of pain is described as aching, tender, Pain began 2-3 days ago. Is continuous. Neuro: Level of Consciousness is awake, alert, obeys commands. Cardiovascular: Capillary refill < 3 seconds is brisk in bilateral fingers. Respiratory: Airway is patent Respiratory effort is even, unlabored, Respiratory pattern is regular, symmetrical. GI: Abdomen is non-distended. GI: Reports lower abdominal pain, upper abdominal pain, diarrhea, nausea, vomiting. : No signs and/or symptoms were reported regarding the genitourinary system. Denies burning with urination, urgency. EENT: Oral mucosa is moist. Derm: Skin is pink, warm \T\ dry. normal. Musculoskeletal: Circulation, motion, and sensation intact. Range of motion: intact in all extremities, Swelling absent. 10:36 Reassessment: Pt to CT now VIA wheelchair. ss 11:36 Reassessment: Patient appears in no apparent distress at this time. Patient and/or ss family updated on plan of care and expected duration. Pain level reassessed. Patient is alert, oriented x 3, equal unlabored respirations, skin warm/dry/pink. 11:37 Reassessment: Awaiting for Infusion to complete prior to discharge. ss Vital Signs: 09:42 BP 120 / 81; Pulse 108; Resp 18 S; Temp 98.0(TE); Pulse Ox 99% on R/A; Weight 124.74 kg aa5 (R); Height 5 ft. 6 in. (167.64 cm) (R); 11:29 Pulse 89; Pulse Ox 100% on R/A; iw 09:42 Body Mass Index 44.39 (124.74 kg, 167.64 cm) aa5 ED Course: 09:18 Patient arrived in ED. as 09:42 Osmany Molina NP is PHCP. pm1 09:42 Vivek Hernandez MD is Attending Physician. pm1 09:42 Arm band placed on. aa5 09:43 Triage completed. aa5 10:16 Estefania Jules, ENMANUEL is Primary Nurse. ss 10:17 Patient has correct armband on for positive identification. Bed in low position. Call ss light in reach. Pulse ox on. NIBP on. Warm blanket given. 10:17 Inserted saline lock: 22 gauge in right antecubital area, using aseptic technique. ss Blood collected. 10:17 Patient maintains SpO2 saturation greater than 95% on room air. ss 10:42 CT Abd/Pelvis - IV Contrast Only In Process Unspecified. EDMS 11:37 No provider procedures requiring assistance completed. ss 12:23 IV discontinued, intact, bleeding controlled, No redness/swelling at site. ld1 Administered Medications: 10:30 Drug: Zofran (Ondansetron) 4 mg Route: IVP; Site: right antecubital; ss 10:30 Drug: NS 0.9% 1000 ml Route: IV; Rate: 1000 ml; Site: right antecubital; ss 10:32 Drug: morphine 4 mg Route: IVP; Site: right antecubital; ss Outcome: 11:31 Discharge ordered by MD. pm1 12:23 Discharged to home ambulatory. ld1 12:23 Condition: stable 12:23 Discharge instructions given to patient, Instructed on discharge instructions, follow up and referral plans. medication usage, Demonstrated understanding of instructions, follow-up care, medications, Prescriptions given X 2. 12:23 Patient left the ED. ld1 Signatures: Dispatcher [employer] EDMS Mally Meier Irene, RN RN iw Calderon, Audri, RN RN aa5 Estefania Jules RN RN ss Marinas, Patrick, MARIKA [employer] pm1 Elizabeth Perez RN RN ld1
--- NOTE | 2021-10-16 11:33 | EDPHYS ---
Physician Documentation [facility] Name: Sarai Medina Age: 31 yrs Sex: Female : 1990 Arrival Date: 10/16/2021 Time: 09:18 Bed 9 Private MD: ED Physician Vivek Hernandez HPI: 10/16 09:47 This 31 yrs old Black Female presents to ER via Ambulatory with complaints of pm1 Vomiting/Diarrhea. 09:47 The patient presents to the emergency department with vomiting, diarrhea, abdominal pm1 pain. Onset: The symptoms/episode began/occurred 2 day(s) ago. Possible causes: unknown. The symptoms are aggravated by food , The symptoms are alleviated by nothing. Associated signs and symptoms: Pertinent negatives: fever. Severity of symptoms: in the emergency department the symptoms are unchanged. The patient has not recently seen a physician. Historical: - Allergies: 09:43 Phenergan; aa5 - Home Meds: 09:43 None [Active]; aa5 - PMHx: 09:43 None; aa5 - PSHx: 09:43 Cholecystectomy; aa5 - Immunization history:: Client reports having NOT received the Covid vaccine. - Social history:: Smoking status: Patient reports the use of cigarette tobacco products. ROS: 09:47 Constitutional: Negative for fever, chills, and weight loss, Cardiovascular: Negative pm1 for chest pain, palpitations, and edema, Respiratory: Negative for shortness of breath, cough, wheezing, and pleuritic chest pain. 09:47 Back: Negative for injury and pain, : Negative for injury, bleeding, discharge, and swelling, MS/Extremity: Negative for injury and deformity, Skin: Negative for injury, rash, and discoloration, Neuro: Negative for headache, weakness, numbness, tingling, and seizure. 09:47 Abdomen/GI: Positive for abdominal pain, nausea, vomiting, and diarrhea, Negative for constipation. 09:47 All other systems are negative. Exam: 09:47 Constitutional: This is a well developed, well nourished patient who is awake, alert, pm1 and in no acute distress. Head/Face: Normocephalic, atraumatic. 09:47 Skin: Warm, dry with normal turgor. Normal color with no rashes, no lesions, and no evidence of cellulitis. MS/ Extremity: Pulses equal, no cyanosis. Neurovascular intact. Full, normal range of motion. 09:47 Cardiovascular: Exam negative for acute changes, Rate: tachycardic, Rhythm: regular, Pulses: no pulse deficits are appreciated. 09:47 Respiratory: Exam negative for acute changes, the patient does not display signs of respiratory distress, Respirations: normal, Breath sounds: are clear throughout. 09:47 Abdomen/GI: Exam negative for acute changes, Inspection: abdomen appears normal, Palpation: abdomen is soft and non-tender, in all quadrants. 09:47 Neuro: Exam negative for acute changes, Orientation: is normal, Mentation: is normal, Motor: is normal, moves all fours. Vital Signs: 09:42 BP 120 / 81; Pulse 108; Resp 18 S; Temp 98.0(TE); Pulse Ox 99% on R/A; Weight 124.74 kg aa5 (R); Height 5 ft. 6 in. (167.64 cm) (R); 11:29 Pulse 89; Pulse Ox 100% on R/A; iw 09:42 Body Mass Index 44.39 (124.74 kg, 167.64 cm) aa5 MDM: 09:46 Patient medically screened. pm1 10:32 Differential diagnosis: Nonspecific abd pain, cholecystitis, appendicitis, pm1 diverticulitis, viral gastroenteritis, gastroenteritis. 11:31 Data reviewed: vital signs. Data interpreted: Pulse oximetry: on room air is 100 %. pm1 Interpretation: normal. Counseling: I had a detailed discussion with the patient and/or guardian regarding: the historical points, exam findings, and any diagnostic results supporting the discharge/admit diagnosis, lab results, radiology results, the need for outpatient follow up, to return to the emergency department if symptoms worsen or persist or if there are any questions or concerns that arise at home. 10/16 09:45 Order name: Basic Metabolic Panel; Complete Time: : aa5 10/16 09:45 Order name: CBC with Diff aa10/16 09:45 Order name: Hepatic Function; Complete Time: : aa5 10/16 09:45 Order name: Lipase; Complete Time: aa10/16 09:57 Order name: COVID-19/FLU A+B (Document "Date of Onset" if Symptomatic); Complete Time: pm1 11:20 10/16 10:07 Order name: Urine Dipstick-Ancillary; Complete Time: 10:50 EDMS 10/16 09:45 Order name: IV Saline Lock; Complete Time: 10:17 aa5 10/16 09:45 Order name: Labs collected and sent; Complete Time: 10:17 aa5 10/16 09:53 Order name: CT Abd/Pelvis - IV Contrast Only; Complete Time: 11:20 pm1 10/16 09:53 Order name: Urine Dipstick-Ancillary (obtain specimen); Complete Time: 10:06 pm1 10/16 10:07 Order name: Urine --Ancillary (enter results); Complete Time: 10:50 iw 10/16 09:53 Order name: Urine Test (obtain specimen); Complete Time: 10:06 pm1 Administered Medications: 10:30 Drug: Zofran (Ondansetron) 4 mg Route: IVP; Site: right antecubital; ss 10:30 Drug: NS 0.9% 1000 ml Route: IV; Rate: 1000 ml; Site: right antecubital; ss 10:32 Drug: morphine 4 mg Route: IVP; Site: right antecubital; ss Disposition: 14:54 Co-signature as Attending Physician, Vivek Hernandez MD I agree with the assessment and kdr plan of care. Disposition Summary: 10/16/21 11:31 Discharge Ordered Location: Home pm1 Problem: new pm1 Symptoms: have improved pm1 Condition: Stable pm1 Diagnosis - Vomiting, unspecified pm1 - Diarrhea, unspecified pm1 Followup: pm1 - With: Emergency Department - When: As needed - Reason: Worsening of condition Followup: pm1 - With: Private Physician - When: 2 - 3 days - Reason: Recheck today's complaints, Continuance of care, Re-evaluation by your physician Discharge Instructions: - Discharge Summary Sheet pm1 - Food Choices to Help Relieve Diarrhea, Adult pm1 - Diarrhea, Adult pm1 - Nausea and Vomiting, Adult pm1 - Viral Gastroenteritis, Adult pm1 Forms: - Medication Reconciliation Form pm1 - Thank You Letter pm1 - Antibiotic Education pm1 - Prescription Opioid Use pm1 Prescriptions: - ondansetron 4 mg Oral tablet,disintegrating - place 1 tablet by TRANSLINGUAL route every 8 hours As needed; 12 tablet; pm1 Refills: 0, Product Selection Permitted - dicyclomine 20 mg Oral Tablet - take 1 tablet by ORAL route every 6 hours As needed; 20 tablet; Refills: 0, pm1 Product Selection Permitted Signatures: Dispatcher [employer] Vivek Bowser MD MD kdr Calderon, Audri, RN RN aa5 Estefania Jules RN RN ss Osmany Molina, [employer] pm1
[2021-10-16 12:34] LABS: Anisocytosis SLIGHT; Blood Morphology Comment NOTED (NOT SEEN); Hypochromasia 1+; Platelet Estimate ADEQ; White Blood Cell Scan OK (OK)
[2021-10-16 12:37] VITALS: BP 120/81; TEMP 98
[2021-10-16 12:39] VITALS: O2SAT 100
== END 2021-10-16 12:23 | disposition home or self-care (01) ==
LOC: ER 09:16
DX: R19.7 Diarrhea, unspecified (principal); Z20.822 Contact with and (suspected) exposure to COVID-19; Z72.0 Tobacco use; Z88.8 Allergy status to other drugs, medicaments and biological substances
CPT/HCPCS: 0240U; 36415; 74177; 80048; 80076; 81003; 81025; 82565; 83690; 85025; 96374; 96375; 99284; J2405; J7030; Q9967

== ENCOUNTER 2022-02-27 09:35 | Emergency (ER) | payer SELFPAY ==
[2022-02-27] MEDS ORDERED: NA CHLORIDE 0.9% 1,000 ML ONE (10:03)
[2022-02-27 10:36] LABS: Absolute Lymphocytes (CBC) 1.8 K/uL (0.7-4.9); Hematocrit 37.8 % (36.0-45.0); Lymphocytes % 14.2 % (15.3-44.8); MPV 7.6 fL (7.6-11.3); RBC Red Blood Cell Count 4.92 M/uL (3.86-4.86)
[2022-02-27 11:09] LABS: ALT/SGPT 20 U/L (12-78); AST/SGOT 8 U/L (15-37); Albumin 3.5 g/dL (3.4-5.0); Alkaline Phosphatase 86 U/L (45-117); BUN Blood Urea Nitrogen 3 mg/dL (7-18); Bicarbonate 22 mmol/L (21-32); Bilirubin Total 0.2 mg/dL (0.2-1.0); Glucose Level 92 mg/dL (74-106); HCG, Quantitative 49474 mIU/mL (1-3); Lipase 58 U/L (73-393); Potassium 3.6 mmol/L (3.5-5.1); Protein, Total 7.9 g/dL (6.4-8.2); Sodium Level 137 mmol/L (136-145)
[2022-02-27 11:46] LABS: Urine Blood Negative (Negative); Urine Glucose Negative (Negative); Urine Protein Trace (Negative)
--- NOTE | 2022-02-27 11:50 | RAD REPORT ---
EXAM DESCRIPTION: US - Transvaginal OB - 02/27/2022 11:38 am CLINICAL HISTORY: ABD CRAMPING, COMPARISON: No comparisons FINDINGS: Single IUP identified. heart tones are present. The crown-rump length measures 3 cm which is consistent with 9 weeks 4 days. The yolk sac measures 5 millimeters. heart rate is zuri sured at 171 beats per minute. The right ovary measures 3.6 x 1.7 x 1.2 cm with volume of 3.8 cc. The left ovary measures 3.1 x 2.6 x 1.8 cm with volume of 7.6 cc. Bilateral ovarian blood flow is present. IMPRESSION: Single viable IUP with positive heart tones measuring 9 weeks 4 days with SHANTEL of 1 11/28/2021. Bilateral ovarian blood flow.
[2022-02-27 12:02] LABS: Urine Bacteria 20-50 /HPF (<20); Urine Mucus MOD /HPF (NONE SEEN); Urine RBC <5 /HPF (NONE SEEN)
--- NOTE | 2022-02-27 12:09 | ER ---
Nurse's Notes [facility] Name: Sarai Medina Age: 31 yrs Sex: Female : 1990 Arrival Date: 02/27/2022 Time: 09:36 Bed 15 Private MD: Diagnosis: UTI/ Urinary tract infection, site not specified;9 weeks gestation of Presentation: 02/27 09:39 Chief complaint: Patient states: "I have not been able to urinate in 2 days. I have jd3 been throwing up and still can't go. I am currently as well, but I don't know how far.". Coronavirus screen: At this time, the client does not indicate any symptoms associated with coronavirus-19. Ebola Screen: No symptoms or risks identified at this time. Initial Sepsis Screen: Does the patient meet any 2 criteria? No. Patient's initial sepsis screen is negative. Does the patient have a suspected source of infection? No. Patient's initial sepsis screen is negative. Risk Assessment: Do you want to hurt yourself or someone else? Patient reports no desire to harm self or others. Onset of symptoms was February 24, 2022. 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 Flu vaccine is not up to date. - Social history:: Smoking status: Patient/guardian denies using tobacco, Stopped _ months ago 1. Screenin:15 Abuse screen: Denies threats or abuse. Nutritional screening: No deficits noted. vg1 Tuberculosis screening: No symptoms or risk factors identified. Fall Risk No fall in past 12 months (0 pts). No secondary diagnosis (0 pts). IV access (20 points). Ambulatory Aid- None/Bed Rest/Nurse Assist (0 pts). Gait- Normal/Bed Rest/Wheelchair (0 pts) Mental Status- Oriented to own ability (0 pts). Total Armstrong Fall Scale indicates No Risk (0-24 pts). Assessment: 09:53 General: Appears in no apparent distress. uncomfortable, Behavior is cooperative, vg1 crying. Pain: Complains of pain in back and pelvis Pain currently is 8 out of 10 on a pain scale. Pain began Friday02/24/22 Noted to be crying, guarding. Neuro: Level of Consciousness is awake, alert, obeys commands, Oriented to person, place, time, situation. Cardiovascular: Patient's skin is warm and dry. Respiratory: Airway Respiratory effort is even, unlabored. GI: Abdomen is round non-distended, Reports constipation, nausea, vomiting, since x 1 week Last BM was 02/24/22. : Reports inability to void, since 02/24/22 'Im but unsure of how long; my last period was in November but my periods are irregular'. EENT: No signs and/or symptoms were reported regarding the EENT system. Derm: Skin is intact, is healthy with good turgor. Musculoskeletal: Circulation, motion, and sensation intact. 11:48 Reassessment: Patient appears in no apparent distress at this time. No changes from vg1 previously documented assessment. Patient and/or family updated on plan of care and expected duration. Pain level reassessed. Patient is alert, oriented x 3, equal unlabored respirations, skin warm/dry/pink. Vital Signs: 09:42 BP 131 / 75; Pulse 109; Resp 20 S; Temp 98.8(TE); Pulse Ox 100% on R/A; Weight 90.72 kg jd3 (R); Height 5 ft. 6 in. (167.64 cm) (R); Pain 8/10; 09:55 BP 102 / 52; Pulse 100; Resp 17; Pulse Ox 100% on R/A; vg1 10:15 BP 113 / 74; Pulse 98; Resp 16; Pulse Ox 100% on R/A; vg1 11:00 BP 121 / 72; Pulse 84; Resp 16; Pulse Ox 100% on R/A; vg1 09:42 Body Mass Index 32.28 (90.72 kg, 167.64 cm) jd3 ED Course: 09:36 Patient arrived in ED. am2 09:37 Heather Loera FNP-C is PHCP. kb 09:37 Vivek Hernandez MD is Attending Physician. kb 09:41 Triage completed. jd3 09:43 Arm band placed on. jd3 09:53 Marina Lorenzana, RN is Primary Nurse. vg1 10:15 Patient has correct armband on for positive identification. Placed in gown. Bed in low vg1 position. Call light in reach. Side rails up X 1. 10:19 Initial lab(s) drawn, by me, sent to lab. Inserted saline lock: 20 gauge in right vg1 antecubital area, using aseptic technique. Blood collected. 11:40 US Transvaginal Ob In Process Unspecified. EDMS 12:18 No provider procedures requiring assistance completed. IV discontinued, intact, vg1 bleeding controlled, No redness/swelling at site. Pressure dressing applied. Administered Medications: 10:21 Drug: NS 0.9% 1000 ml Route: IV; Rate: 1 bolus; Site: right antecubital; vg1 12:17 Follow up: IV Status: Completed infusion; IV Intake: 1000ml vg1 Intake: 12:17 IV: 1000ml; Total: 1000ml. vg1 Outcome: 12:08 Discharge ordered by . kb 12:18 Discharged to home ambulatory. vg1 12:18 Condition: good 12:18 Discharge instructions given to patient, Instructed on discharge instructions, follow up and referral plans. medication usage, Demonstrated understanding of instructions, follow-up care, medications, Prescriptions given X 2. 12:18 Patient left the ED. vg1 Signatures: Dispatcher [employer] EDDE Heather Loera, SHERMAN PRISON TEACHER-Pam Elizabeth am2 Chas Chavez RN RN Marina Rehman, RN RN vg1 Corrections: (The following items were deleted from the chart) 09:43 09:42 Pulse 109bpm; Resp 20bpm; Spontaneous; Pulse Ox 100% RA; Temp 98.8F Temporal; jd3 90.72 kg Reported; Height 5 ft. 6 in. Reported; BMI: 32.2; Pain 8/10; jd3 10:37 09:53 GI: Abdomen is round non-distended, Reports nausea, vomiting, since x 1 week vg1 vg1
--- NOTE | 2022-02-27 12:09 | EDPHYS ---
Physician Documentation [facility] Name: Sarai Medina Age: 31 yrs Sex: Female : 1990 Arrival Date: 02/27/2022 Time: 09:36 Bed 15 Private MD: ED Physician Vivek Hernandez HPI: 02/27 09:45 This 31 yrs old Black Female presents to ER via Ambulatory with complaints of kb Nausea/Vomiting, Constipation, Urinary Retention. 09:45 The patient presents to the emergency department with nausea, vomiting. kb 09:52 Onset: The symptoms/episode began/occurred 1 week(s) ago. Possible causes: . kb The symptoms are aggravated by nothing. The symptoms are alleviated by nothing. Associated signs and symptoms: Pertinent positives: nausea, vomiting, decreased urination. Severity of symptoms: At their worst the symptoms were moderate in the emergency department the symptoms are unchanged. The patient has not experienced similar symptoms in the past. The patient has not recently seen a physician. Pt reports nausea and vomiting for a week. States she has not urinated since Friday after confucianist. Unable to tolerate anything by mouth. 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 Flu vaccine is not up to date. - Social history:: Smoking status: Patient/guardian denies using tobacco, Stopped _ months ago 1. ROS: 09:45 Constitutional: Negative for fever, chills, and weight loss. kb 09:45 Abdomen/GI: Positive for abdominal pain, nausea and vomiting. 09:45 : Positive for difficulty urinating. 09:45 All other systems are negative. Exam: 09:45 Constitutional: This is a well developed, well nourished patient who is awake, alert, kb and in no acute distress. Head/Face: Normocephalic, atraumatic. ENT: Moist Mucous membranes Cardiovascular: Regular rate and rhythm with a normal S1 and S2. No gallops, murmurs, or rubs. No pulse deficits. Respiratory: Respirations even and unlabored. No increased work of breathing. Talking in full sentences Abdomen/GI: Soft, non-tender. No distention Skin: Warm, dry with normal turgor. Normal color. MS/ Extremity: Pulses equal, no cyanosis. Neurovascular intact. Full, normal range of motion. Neuro: Awake and alert, GCS 15, oriented to person, place, time, and situation. Moves all extremities. Normal gait. Psych: Awake, alert, with orientation to person, place and time. Behavior, mood, and affect are within normal limits. Vital Signs: 09:42 BP 131 / 75; Pulse 109; Resp 20 S; Temp 98.8(TE); Pulse Ox 100% on R/A; Weight 90.72 kg jd3 (R); Height 5 ft. 6 in. (167.64 cm) (R); Pain 8/10; 09:55 BP 102 / 52; Pulse 100; Resp 17; Pulse Ox 100% on R/A; vg1 10:15 BP 113 / 74; Pulse 98; Resp 16; Pulse Ox 100% on R/A; vg1 11:00 BP 121 / 72; Pulse 84; Resp 16; Pulse Ox 100% on R/A; vg1 09:42 Body Mass Index 32.28 (90.72 kg, 167.64 cm) jd3 MDM: 09:42 Patient medically screened. kb 09:44 Data reviewed: vital signs, nurses notes. Data interpreted: Pulse oximetry: on room air kb is 100 %. Interpretation: normal. 12:07 Counseling: I had a detailed discussion with the patient and/or guardian regarding: the kb historical points, exam findings, and any diagnostic results supporting the discharge/admit diagnosis, lab results, radiology results, the need for outpatient follow up, an OB/Gyne specialist, to return to the emergency department if symptoms worsen or persist or if there are any questions or concerns that arise at home. 02/27 09:42 Order name: CBC with Diff; Complete Time: 10:42 kb 02/27 09:42 Order name: CMP; Complete Time: 11:12 kb 02/27 09:42 Order name: Lipase; Complete Time: 11:12 kb 02/27 09:42 Order name: Quantitative Hcg; Complete Time: 11:12 kb 02/27 11:47 Order name: Urine --Ancillary (enter results); Complete Time: 12:00 bd 02/27 11:47 Order name: Urine Dipstick-Ancillary; Complete Time: 11:47 EDMS 02/27 09:42 Order name: IV Saline Lock; Complete Time: 10:19 kb 02/27 09:42 Order name: Labs collected and sent; Complete Time: 10:19 kb 02/27 09:42 Order name: Urine Dipstick-Ancillary (obtain specimen); Complete Time: 11:46 kb 02/27 09:42 Order name: Urine Test (obtain specimen); Complete Time: 11:47 kb 02/27 11:15 Order name: US Transvaginal Ob; Complete Time: 11:53 kb 02/27 11:47 Order name: Urine Microscopic Only; Complete Time: 12:03 vg1 02/27 12:05 Order name: Urine Culture EDMS Administered Medications: 10:21 Drug: NS 0.9% 1000 ml Route: IV; Rate: 1 bolus; Site: right antecubital; vg1 12:17 Follow up: IV Status: Completed infusion; IV Intake: 1000ml vg1 Disposition: 12:58 Co-signature as Attending Physician, Vivek Hernandez MD I agree with the assessment and kdr plan of care. Disposition Summary: 02/27/22 12:08 Discharge Ordered Location: Home kb Condition: Stable kb Diagnosis - UTI/ Urinary tract infection, site not specified kb - 9 weeks gestation of kb Followup: kb - With: Emergency Department - When: As needed - Reason: Worsening of condition Followup: kb - With: Private Physician - When: 2 - 3 days - Reason: Recheck today's complaints, Continuance of care, Re-evaluation by your physician Discharge Instructions: - Discharge Summary Sheet kb - First Trimester of , [id number] kb - and Urinary Tract Infection kb Forms: - Medication Reconciliation Form kb - Thank You Letter kb - Antibiotic Education kb - Prescription Opioid Use kb Prescriptions: - Diclegis 10-10 mg Oral tablet,delayed release (DR/EC) - take 1 tablet by ORAL route once daily As needed; 10 tablet; Refills: 0, kb Product Selection Permitted - Macrobid 100 mg Oral Capsule - take 1 capsule by ORAL route every 12 hours for 5 days; 10 capsule; Refills: 0, kb Product Selection Permitted Signatures: Dispatcher [employer] Heather Lopez, COMPLIANCE PROFESSIONAL-C COMPLIANCE PROFESSIONAL-Vivek Berman MD MD kdr Davies, Jonathon, RN RN jd3 Marina Lorenzana RN RN vg1
[2022-02-27 21:46] VITALS: TEMP 98.8; O2SAT 100
[2022-02-27 21:51] VITALS: BP 121/72
== END 2022-02-27 12:18 | disposition home or self-care (01) ==
LOC: ER 09:35
DX: O23.41 Unspecified infection of urinary tract in pregnancy, first trimester (principal); N39.0 Urinary tract infection, site not specified; Z3A.09 9 weeks gestation of pregnancy; Z88.8 Allergy status to other drugs, medicaments and biological substances
CPT/HCPCS: 36415; 76817; 80053; 81003; 81015; 81025; 83690; 84702; 85025; 87086; 87088; 96360; 96361; 99284; J7030

== ENCOUNTER 2022-05-20 11:08 | Emergency (ER) | payer OTHER, SELFPAY ==
--- OUTSIDE RECORDS SUMMARY | 2022-05-20 11:10 | XMS REPORT | Continuity of Care Document ---
:1990 Author Organization [facility] t Address [address] [place] [address] Care Team Providers Name Role Phone PCP, DOES NOT HAVE A Primary Care Physician Unavailable TRITSCHLER Attending Clinician Unavailable TRITSCHLER Attending Clinician Unavailable Pob, Lab Main Attending Clinician Unavailable Tejas KOCH Attending Clinician TEJAS Attending Clinician Unavailable Doctor Unassigned, Name Attending Clinician Unavailable Payers Payer Name Policy Type Policy Number Effective Date Expiration Date [facility] [id number] 2022 00:00:00 Problems Condition Condition Condition Status Onset Resolution Last Treating Co mments Source Name Details Category Date Date Treatment Clinician Date Supervisio Supervisio Disease Active U nivers n of n of 04-30 it[place] of [place] [facility] with with [place] insufficie insufficie nt nt care in care in second second trimester trimester 18 weeks 18 weeks Disease Active Unive rs gestation gestation 04-30 ity of of of 00:00: [place] 00 [facility] Branch Disease Active Uni vers examinatio examinatio 04-30 it y of n or test, [place] Med[place] result result Branch Nausea and Nausea and Disease Active U nivers vomiting, vomiting, 04-30 ity of intractabi [place]ractabi [place] of lity of 00 Medical vomiting vomiting Branch not not specified, specified, unspecifie unspecifie d vomiting d vomiting type type Allergies, Adverse Reactions, Alerts Allergy Allergy Status Severity Reaction(s) Onset Inactive Treating Comm ents Source Name Type Date Date Clinician Suleman Propensi Active Nausea Univer s zine ty to and/or 04-30 ity of adverse Vomiting 00:00: [place] reaction 00 Medical s Branch PROMETHA DRUG Active N/V Univers ZINE INGREDI 04-30 ity of 00:00: [place] 00 Medical Branch NO KNOWN Drug Active Univers ALLERGIE Class ity of S [place] [facility] Social History Social Habit Start Date Stop Date Quantity Comments Source ASSERTION 2022-01-05 University of 00:00:00 [place] [facility] History SDOH University o f Alcohol Std [place] [facility] Drinks Branch History SDOH University o f Alcohol Binge [place] [facility] History SDOH University o f Alcohol Comment [place] [facility] Alcohol intake 2022-05-04 2022-05-04 Lifetime University of 00:00:00 00:00:00 non-drinker [place] [facility] ([facility]) Branch Tobacco use and 2022-04-30 2022-04-30 Never used Universit y of exposure 00:00:00 00:00:00 [place] [facility] History SDOH 2022-04-30 2022-04-30 1 University o f Alcohol Frequency 00:00:00 00:00:00 [facility] edical Branch Sex Ass[birth year] At [birth year] Universit y of 00:00:00 00:00:00 [facility] Smoking Status Start Date Stop Date Source Never smoker [facility] Medications Ordered Filled Start Stop Current Ordering Indication Dosage Frequency Signature Comments Components Source Medication Medication Date Date Medication? Clinician (SIG) Name Name metroNIDAZO 2021- Yes [id number] 500mg Take 1 Univers LE 500 mg 05-01 tablet by ity of tablet 00:00: 04:59 mouth [place] 00 :00 every 12 Medical (twelve) Branch hours for 7 days. metroNIDAZO 2021- Yes [id number] 500mg Take 1 Univers LE 500 mg 05-01 tablet by ity of tablet 00:00: 04:59 mouth [place] 00 :00 every 12 Medical (twelve) Branch hours for 7 days. metroNIDAZO 2021- Yes [id number] 500mg Take 1 Univers LE 500 mg 6-08 06-16 tablet by ity of tablet 00:00: 04:59 mouth [place] 00 :00 every 12 Medical (twelve) Branch hours for 7 days. PNV 2021-0 Yes [id number] 1{dose} Take 1 U nivers 112-iron-FA 04-30 09 Dose by ity o f -om-3s-dha- 00:00: mouth [place] epa 00 daily. Medical (VITAFOL Branch GUMMIES) 3.33 mg iron- 0.33 mg Chew metoclopram 202-0 Yes [id number] 10mg Take 1 Univers neto HCl 10 04-30 tablet by ity of mg tablet 00:00: mouth [place] 00 every 6 Medical (six) Branch hours as needed for Nausea and Vomiting (N/V). PNV 2021-0 Yes [id number] 1{dose} Take 1 U nivers 112-iron-FA 04-30 09 Dose by ity o f -om-3s-dha- 00:00: mouth [place] epa 00 daily. Medical (VITAFOL Branch GUMMIES) 3.33 mg iron- 0.33 mg Chew metoclopram 2021-0 Yes [id number] 10mg Take 1 Univers neto HCl 10 04-30 tablet by ity of mg tablet 00:00: mouth [place] 00 every 6 Medical (six) Branch hours as needed for Nausea and Vomiting (N/V). PNV 2021-0 Yes [id number] 1{dose} Take 1 U nivers 112-iron-FA 04-30 Dose by ity o f -om-3s-dha- 00:00: mouth [place] epa 00 daily. Medical (VITAFOL Branch GUMMIES) 3.33 mg iron- 0.33 mg Chew metoclopram 2021-0 Yes [id number] 10mg Take 1 Univers neto HCl 10 04-30 tablet by ity of mg tablet 00:00: mouth [place] 00 every 6 Medical (six) Branch hours as needed for Nausea and Vomiting (N/V). PNV 2021-0 Yes [id number] 1{dose} Take 1 U nivers 112-iron-FA 04-30 09 Dose by ity o f -om-3s-dha- 00:00: mouth [place] epa 00 daily. Medical (VITAFOL Branch GUMMIES) 3.33 mg iron- 0.33 mg Chew metoclopram 2022-0 Yes [id number] 10mg Take 1 Univers neto HCl 10 04-30 tablet by ity of mg tablet 00:00: mouth [place] 00 every 6 Medical (six) Branch hours as needed for Nausea and Vomiting (N/V). Vital Signs Vital Name Observation Time Observation Value Comments Source Systolic blood 2022-04-30 18:34:00 118 mm[facility]Hg[facility] Diastolic blood 2022-04-30 18:34:00 73 mm[Hg[facility] rate 2022-04-30 18:34:00 83 /min [facility] Body temperature 2022-04-30 18:34:00 36.89 [facility] Body height 2022-04-30 18:34:00 167.6 cm [facility] Body weight 2022-04-30 18:34:00 115.667 kg [facility] BMI 2022-04-30 18:34:00 41.16 kg/m2 [facility] Procedures Procedure Date / Time Performed Performing Clinician [facility] e ASSIGNMENT OF BENEFITS 2022-05-06 15:17:45 Doctor Unassigned, No [facility] Name [facility] GC & CHLAMYDIA 2022-04-30 18:54:00 Jackie Sanchez [facility] AMPLIFIED ASSAY [facility] PAP SMEAR-LIQUID 2022-04-30 18:54:00 Jackie Sanchez [facility] BASED-CP [facility] GALV ONLY - VAGINAL 2022-04-30 18:53:00 Jackie Sanchez [facility] PATHOGENS BY NUCLEIC Medical [facility] ACID TESTING POCT TEST 2022-04-30 00:00:00 Woody [facility] POCT URINALYSIS W/O 2022-04-30 00:00:00 Jackie Sanchez [facility] SPECIFIC GRAVITY [facility] Encounters Start End Encounter Admission Attending Care Care Encounter Source Date/Time Date/Time Type Type Clinicians Facility Department ID 2022-05-28 2022-05-28 Outpatient R JACKIE SANCHEZ [facility] B [id number] [facility] 09:00:00 09:00:00 MICHSHORTYJACKIE MIDDLETON ity of [facility] 2022-05-28 2022-05-28 Outpatient R GAVINOCLAUDETTESHORTYJACKIE MIDDLETON [facility] B [id number] Univers 09:00:00 09:00:00 JACKIE SANCHEZ [id number] ity of [facility] 2022-05-06 2022-05-06 Radiation / Chemistry Technician Roel Meneses Lab Main [facility] 1.2.8 [id number] Univers 11:15:00 11:30:00 Visit Tho [place]ers [id number] it[id number] [id number] N[place] dical [address] 2022-05-06 2022-05-06 Outpatient R [facility] [id number] Univers 11:15:00 11:15:00 [id number] ity of [facility] 2022-05-06 2022-05-06 Outpatient R THO BYERS [facility] [id number] Univers 11:15:00 11:15:00 ity of [facility] 2022-05-06 2022-05-06 Orders Doctor SIOBHAN [id number] Univers 00:00:00 00:00:00 Only Unassigned, MATEUS [id number] ity of [address] [facility] [id number] Eric as [id number] [place] [address] Branch 2022-05-01 2022-05-01 Case Gavinoclaudetteshortyemi [facility] [id number] Univers 00:00:00 00:00:00 Management Jackie BELTRAN [id number] [id number] [facility] [id number] [facility] [address] 2022-04-30 2022-04-30 [facility] [id number] Univers 13:30:00 14:05:01 Jackie BELTRAN [id number] i ty of Visit [id number] [id number] [address] 2022-04-30 2022-04-30 Outpatient R GAVINOCLAUDETTESHORTYEMI JACKIE [facility] B [id number] Univers 13:30:00 14:05:[address] [facility] Results Test Description Test Time Test Comments Results Result Comments Source POCT TEST 2022-04-30 18:40:00 Test Item Value Reference Range Interpretation Comme nts POCT PREG (test code = 1605) Positive On board controls acceptable with C Line (test code = 3574) Yes POCT PREG LOT # (test code = 3575) POCT PREG TEST DATE (test code = 3576) [facility] SPECIFIC [id number] 18:40:00 Test Item Value Reference Range Interpretation Comments POCT PH U (test code = 3254) 6 mg/dl 5-8 POCT U LEUK EST (test code = Negative Negative - Negative 3263) POCT U NIT (test code = 3262) negative Negative - Negative POCT U PROT (test code = 3259) negative Negative - Negative POCT U GLU (test code = 3256) Normal Negative - Negative POCT U KETONE (test code = 3258) Negative Negative - Negative POCT U BLD (test code = 3257) Negative Negative - Negative [facility]
--- NOTE | 2022-05-20 12:33 | RAD REPORT ---
EXAM DESCRIPTION: RAD - Knee Right 3 View - 05/20/2022 12:06 pm CLINICAL HISTORY: Right knee pain status post injury FINDINGS: No fracture or dislocation is seen. If patient continues have symptoms to suggest an occult fracture, ligamentous or meniscal injury MRI would be recommended
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
--- NOTE | 2022-05-20 13:06 | ER ---
Nurse's Notes [facility] Name: Sarai Medina Age: 31 yrs Sex: Female : 1990 Arrival Date: 05/20/2022 Time: 11:10 Bed DIS4 Private MD: Diagnosis: Unspecified internal derangement of right knee Presentation: 05/20 11:29 Chief complaint: Patient states: fell on left knee twice yesterday, heard a pop. Coronavirus screen: At this time, the client does not indicate any symptoms associated with coronavirus-19. Ebola Screen: Patient negative for fever greater than or equal to 101.5 degrees Fahrenheit, and additional compatible Ebola Virus Disease symptoms Patient denies exposure to infectious person. Patient denies travel to an Ebola-affected area in the 21 days before illness onset. No symptoms or risks identified at this time. Risk Assessment: Do you want to hurt yourself or someone else? Patient reports no desire to harm self or others. Onset of symptoms was May 19, 2022. 11:29 Method Of Arrival: Ambulatory 11:29 Acuity: LAURA 4 iw Historical: - Allergies: 11:30 Phenergan; iw Vital Signs: 11:36 BP 116 / 66; Pulse 99; Resp 18; Temp 98.2; Pulse Ox 100% ; oj ED Course: 11:10 Patient arrived in ED. mr 11:26 Osmany Molina NP is PHCP. pm1 11:26 Kavon Payton MD is Attending Physician. pm1 11:29 Caridad Frias RN is Primary Nurse. 11:30 Triage completed. iw 12:06 X-ray completed. Patient tolerated procedure well. [facility] radiology. [facility] 12:07 Knee Right 3 View XRAY In Process Unspecified. EDGA 13:08 Crutch training done. Knee immobilizer applied on right knee. mb4 Administered Medications: No medications were administered Outcome: 13:05 Discharge ordered by MD. pm1 13:52 Patient left the ED. Signatures: Dispatcher [employer] EDGA Kelly Barber Martha 1 Caridad Frias RN RN Osmany Molina NP LOAN INSPECTOR pm1 Evelyn Hickman mb4 Teri Grace o
[2022-05-20 14:07] VITALS: BP 116/66; TEMP 98.2; O2SAT 100
== END 2022-05-20 13:52 | disposition home or self-care (01) ==
LOC: ER 11:08
DX: M23.91 Unspecified internal derangement of right knee (principal); Z88.8 Allergy status to other drugs, medicaments and biological substances
CPT/HCPCS: 99283